=== PATIENT | female | born 1965 | race African-American/Black ===

== ENCOUNTER 2016-10-10 14:06 | Emergency (ER) | payer SELFPAY ==
[~2016-10-10] VITALS: Ht 175.3 cm; Wt 97.5 kg
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
[2016-10-10] MEDS ORDERED: CYCLOBENZAPRINE 10 MG TABLET. PO ONE (16:30)
[2016-10-10] MEDS ORDERED: NAPROXEN 500 MG TABLET PO ONE (16:30)
[2016-10-10 16:43] VITALS: BP 138/78
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
[2016-10-10] MEDS ORDERED: NAPR250T2 PO (17:01)
[2016-10-10] MEDS ORDERED: CYCL10TA2 PO (17:01)
== END 2016-10-10 17:15 | disposition home or self-care (01) ==
LOC: ER 14:06
DX: S62.637A Displaced fracture of distal phalanx of left little finger, initial encounter for closed fracture (principal); M25.511 Pain in right shoulder; M25.512 Pain in left shoulder; E11.9 Type 2 diabetes mellitus without complications; I10 Essential (primary) hypertension; Z98.890 Other specified postprocedural states; Z88.8 Allergy status to other drugs, medicaments and biological substances; Y08.89XA Assault by other specified means, initial encounter; Y93.89 Activity, other specified; Y99.8 Other external cause status; Y92.098 Other place in other non-institutional residence as the place of occurrence of the external cause; Z91.040 Latex allergy status
CPT/HCPCS: 29130; 73030; 73140; 99284-25